=== PATIENT | male | born 1970 | race Two or more races ===

== ENCOUNTER 2023-10-30 09:05 | Inpatient (IN) | payer OTHER ==
[~2023-10-30 09:05] MED LIST: CELEBREX200MG PO; CYCLOBENZAPRINE10 MG PO; NABUMETONE750 MG PO
[2023-10-30 09:53] LABS: HEMATOCRIT 34.5 % (39.0-48.0); HEMOGLOBIN 11.3 g/dL (13-16.00); MEAN CELL VOLUME 78.8 fL (80.0-100.00); MEAN CORPUSCULAR HEMOGLOBIN 25.9 pg (27.00-32.0); MEAN CORPUSCULAR HGB CONC 32.9 g/dl (32.0-36.0); PLATELET COUNT 376 K/uL (150-450); RED BLOOD COUNT 4.37 M/uL (4.00-6.00); RED CELL DISTRIBUTION WIDTH 16.5 % (11.5-14.5)
[2023-10-30 10:15] LABS: INR 1.02; PARTIAL THROMBOPLASTIN TIME 31.2 SECONDS (22.0-34.0); PROTHROMBIN TIME 10.7 SECONDS (9.0-11.5)
[2023-10-30 10:20] LABS: CALCIUM 9.9 mg/dL (8.5-10.1); CREATININE SERUM 0.85 mg/dL (0.70-1.30); GFR 93.58; POTASSIUM 4.26 mEq/L (3.5-5.1)
[2023-10-30 10:35] LABS: PH,URINE 5.5 (5.0-8.0); URINE APPEARANCE Clear; URINE BILIRRUBIN Negative (NEGATIVE); URINE BLOOD Moderate; URINE COLOR Yellow; URINE GLUCOSE Negative (NEGATIVE); URINE LEUKOCYTE Negative; URINE NITRATE Negative; URINE PROTEIN Negative (NEGATIVE); URINE UROBILINOGEN 0.2 E.U./dl
[2023-10-30 10:39] LABS: URINE EPITHELIAL CELLS 1.8 uL (0.0-38.8); URINE RBC 16.5 uL (0.0-20.8); URINE WBC 3.3 uL (0.0-23.2)
[2023-11-06] MEDS ORDERED: ENOXAPARIN SODIUM 40 MG/0.4 ML SYRINGE SUBCUTANEO ONE ×2 (06:44→08:30)
[2023-11-06] MEDS ORDERED: CEFAZOLIN SODIUM 1,000 MG VIAL ONE (06:44)
[2023-11-06] MEDS ORDERED: LIDOCAINE HCL 1%/Epi 20ML VIAL IJ ONE ×2 (07:35→08:30)
[2023-11-06] MEDS ORDERED: CEFAZOLIN SODIUM 1,000 MG VIAL IV ONE (08:30)
[2023-11-06] MEDS ORDERED: HEMOSTATIC MATRIX 1 KIT KIT TOP ONE ×2 (10:19→10:30)
[2023-11-06] MEDS ORDERED: SURGIFLO APPLICATOR 1 EACH APPL TOP ONE (10:19)
[2023-11-06] MEDS ORDERED: RINGERS SOLUTION,LACTATED 1,000 ML IV SCH (15:45)
[2023-11-06] MEDS ORDERED: OxyCODONE HCL/APAP UD (PERCOCET) PO PRN (15:45)
[2023-11-06] MEDS ORDERED: ONDANSETRON HCL 2 MG/ML VIAL IV PRN (15:45)
[2023-11-06] MEDS ORDERED: GABAPENTIN 300 MG CAPSULE PO SCH (17:00)
[2023-11-06] MEDS ORDERED: CEFAZOLIN SODIUM 1,000 MG VIAL IV SCH (18:00)
[2023-11-06] MEDS ORDERED: KETOROLAC TROMETHAMINE 30 MG VIAL IM SCH (18:00)
[2023-11-06] MEDS ORDERED: FAMOTIDINE/PF 20 MG/2 ML VIAL IV SCH (21:00)
[2023-11-07 07:50] LABS: HEMATOCRIT 31.8 % (39.0-48.0); HEMOGLOBIN 10.7 g/dL (13-16.00); MEAN CELL VOLUME 79.5 fL (80.0-100.00); MEAN CORPUSCULAR HEMOGLOBIN 26.8 pg (27.00-32.0); MEAN CORPUSCULAR HGB CONC 33.7 g/dl (32.0-36.0); PLATELET COUNT 312 K/uL (150-450); RED BLOOD COUNT 4.01 M/uL (4.00-6.00); RED CELL DISTRIBUTION WIDTH 16.7 % (11.5-14.5)
[2023-11-07 08:35] LABS: ALBUMIN 2.4 gm/dL (3.4-5.0); CALCIUM 8.4 mg/dL (8.5-10.1); CREATININE SERUM 1.21 mg/dL (0.70-1.30); GFR 62.26; PHOSPHOROUS 2.5 mg/dL (2.5-4.9); POTASSIUM 4.31 mEq/L (3.5-5.1)
[2023-11-07] MEDS ORDERED: DOCUSATE SODIUM 100MG CAP PO SCH (09:00)
[2023-11-07] MEDS ORDERED: ENOXAPARIN SODIUM 40 MG/0.4 ML SYRINGE SUBCUTANEO SCH (17:00)
== END 2023-11-07 15:21 | disposition home or self-care (01) | DRG 658 ==
LOC: O/R 11-06 06:48 → SURH 11-06 06:48
PROVIDERS: ADMIT Urology; ATTEND Urology
PROC: 0TT04ZZ Resection of Right Kidney, Percutaneous Endoscopic Approach (ICD-10-PCS; principal; 2023-11-06 07:00)
DX: C64.1 Malignant neoplasm of right kidney, except renal pelvis (principal); Z20.822 Contact with and (suspected) exposure to COVID-19